=== PATIENT | male | born 1985 | race Caucasian/White ===

== ENCOUNTER → 2019-07-16 10:07 | Outpatient (BNVA) | payer MEDICAID, SELFPAY | PROVIDERS: Family Provider Family Medicine; PCP Family Medicine; Visit Provider Nurse Practitioner Family | DX: E66.01 Morbid (severe) obesity due to excess calories (principal) | CPT/HCPCS: 80048 ==

== ENCOUNTER → 2020-07-06 15:08 | Outpatient (BNVA) | payer MEDICAID, SELFPAY | PROVIDERS: Family Provider Family Medicine; PCP Family Medicine; Visit Provider Nurse Practitioner Family | DX: J06.9 Acute upper respiratory infection, unspecified (principal) | CPT/HCPCS: 87635 ==

== ENCOUNTER 2021-09-03 18:41 | Emergency (ER) | payer MEDICAID, SELFPAY ==
[2021-09-03 18:50] VITALS: BP 112/75; PULSE 73; RESP 16; TEMP 36.2; BMI 39.7
[2021-09-03 19:26] LABS: Add Urine Microscopic? NO; Charge for UA Resulting for Rev
--- NOTE | 2021-09-03 19:31 | ED_ITS ---
HPI - Back Pain/Injury General: Chief Complaint: Back Pain/Injury Stated Complaint: Kidney Stones Time Seen by Provider: 09/03/21 19:04 History of Present Illness: Patient is a 36-year-old male comes to the ED with lumbar pain. Symptoms have been going on now for approximately 1 week. Patient says symptoms started after he was sitting in the car where the seat that was tilted causing him to lean to 1 side of his body. He was sent in the car's for close to 4 hours. After that he said he started feeling this lower back pain is continued to get worse. Pain is on the left side and it radiates down into his left thigh. Pain gets worse with any movement. Denies any bladder or bowel incontinence, pelvic anesthesia or weakness to lower extremities. Denies any other injury or trauma to back. Associated symptoms: Deny abdominal pain, chills, dysuria, fatigue, fever(s), hematuria, nausea or vomiting Review of Systems Const: Denies: fever(s), chills or fatigue Eyes: Denies: change in vision or eye discomfort ENMT: Denies: throat pain, odynophagia, nasal discharge or nasal congestion Card: Denies: chest pain, palpitations, edema, swelling of feet/ankles, dyspnea on exertion or orthopnea Resp: Denies: dyspnea, productive cough or non-productive cough GI: Denies: abdominal pain, nausea, vomiting, diarrhea, constipation or hematochezia : Denies: flank pain, difficulty urinating, dysuria or hematuria Musc: Reports: back pain; Denies: neck pain or extremity swelling Skin/Breast: Denies: rash or new lesions Neuro: Denies: headache(s), numbness in extremities or weakness in extremities PFS ED PFSH: Medical History No pertinent family history Surgical History No pertinent past surgical history Physical Exam Const: COMMON NORMALS: no acute distress, patient oriented x3 and alert GENERAL APPEARANCE: cooperative and comfortable HENMT: COMMON NORMALS: normocephalic HEAD & SCALP: normocephalic MOUTH: Normal oral and palatal mucosa present THROAT: posterior oropharynx normal and uvula midline Neck/C-Spine: COMMON NORMALS: supple GENERAL: Yes normal visual inspection Resp: COMMON NORMALS: normal respiratory effort, No retractions, No use of ac cessory muscles and clear to auscultation bilaterally AUSCULTATION: clear to auscultation bilaterally Cardio: COMMON NORMALS: regular rate, regular rhythm, S1 normal heart sound present, S2 normal heart sound present, No gallops present (Cardio), No clicks present (Cardio), No murmurs present (Cardio) and Peripheral pulses 2+ throughout RATE: regular rate RHYTHM: regular rhythm HEART SOUNDS: S1 normal heart sound present and S2 normal heart sound present PERIPHERAL PULSES: Peripheral pulses 2+ throughout GI: COMMON NORMALS: Normal to inspection, nondistended, normoactive bowel sounds present, Soft to palpation, non-tender and no masses PALPATION: Yes Soft to palpation : COMMON NORMALS: Yes no CVA tenderness BLADDER/KIDNEY EXAM: Yes no CVA tenderness Back/Pelvis: COMMON NORMALS: no CVA tenderness LUMBAR SPINE/LOWER BACK: Yes pain with ROM, No lumbar spinal tenderness, Yes paraspinal muscle tenderness Lumbar paraspinal muscle tenderness: left and Yes straight leg raise positive left Extremity: COMMON NORMALS: normal to inspection Neuro: COMMON NORMALS: patient oriented x3 and moves all extremities SENSORIUM/ORIENTATION: Yes alert Skin: GENERAL SKIN EXAM: dry skin Course Vital Signs: Vital signs: Vital Signs Temperature 97.2 F L 09/03/21 18:50 Pulse Rate 61 09/03/21 21:12 Respiratory Rate 16 09/03/21 21:12 Blood Pressure 119/83 09/03/21 21:12 Pulse Oximetry 98 09/03/21 21:12 MDM - Back Pain/Injury Medical Decision Making Patient is a 36-year-old male comes to the ED with left lower back pain. Pain radiates down into left thigh. Denies any cauda equina symptoms. CBC and CMP were unremarkable. UA showed no blood ruling out any concerns for any kidney stone. Vitals are stable. Patient has some left lumbar paraspinal muscle tenderness. No lumbar spinal tenderness. Patient was given dose of pain meds, steroid and muscle relaxer here in the ED. Symptoms did improve. Patient diagnosed with lumbar radiculopathy and was discharged home with a prescription for a muscle relaxer, steroid and pain med. He was told to follow-up with his PCP in 7 to 10 days for reevaluation. Return to ED precautions given. Patient understood and agreed with plan. Labs I reviewed the patient's lab results. : 09/03/21 19:39 09/03/21 19:39 Laboratory Results WBC 9.4 10^3/uL (4.0-10.0) 09/03/21 19:39 RBC 4.80 10^6/uL (4.1-5.3) 09/03/21 19:39 Hgb 15.6 g/dL (11.7-16.6) 09/03/21 19:39 Hct 47.3 % (42.0-52.0) 09/03/21 19:39 MCV 98.5 fl (80-94) H 09/03/21 19:39 MCH 32.5 pg (28.0-34.0) 09/03/21 19: MCHC 33.0 g/dL (30.0-36.0) 09/03/21 19:39 RDW 12.6 % (12.1-15.1) 09/03/21 19:39 Plt Count 235 10^3/cmm (130-400) 09/03/21 19:39 MPV 10.3 fL (7.4-10.4) 09/03/21 19:39 Neut % (Auto) 38.9 % 09/03/21 19:39 Lymph % (Auto) 52.2 % 09/03/21 19:39 [place] % (Auto) 7.0 % 09/03/21 19:39 Eos % (Auto) 1.2 % 09/03/21 19:39 Baso % (Auto) 0.6 % 09/03/21 19:39 Neut # (Auto) 3.66 10^3/uL (1.8-7.7) 09/03/21 19:39 Lymph # (Auto) 4.9 10^3/uL (0.8-4.8) H 09/03/21 19:39 [place] # (Auto) 0.7 10^3/uL (0.2-0.9) 09/03/21 19:39 Eos # (Auto) 0.1 10^3/uL (0.0-0.8) 09/03/21 19:39 Baso # (Auto) 0.1 10^3/uL (0.0-0.1) 09/03/21 19:39 Nucleated RBC % (auto) 0 % 09/03/21 19:39 Nucleated RBCs # 0.0 /100WBC 09/03/21 19:39 Sodium 142 mmol/L (136-145) 09/03/21 19:39 Potassium 3.8 mmol/L (3.5-5.1) 09/03/21 19:39 Chloride 105 mmol/L (98-107) 09/03/21 19:39 Carbon Dioxide 24 mmol/L (22-29) 09/03/21 19:39 Anion Gap 16.8 (5-19) 09/03/21 19:39 BUN 14 mg/dL (6-20) 09/03/21 19:39 Creatinine 1.3 mg/dL (0.7-1.2) H 09/03/21 19:39 GFR Calculation 61.8 mL/min (90-130) L 09/03/21 19:39 Glucose 85 mg/dL (65-115) 09/03/21 19:39 Calculated Osmolality 294 mOsm/kg (285-295) 09/03/21 19:39 Calcium 9.5 mg/dL (8.5-10.5) 09/03/21 19:39 Total Bilirubin 0.3 mg/dL (0.15-1.2) 09/03/21 19:39 AST 23 U/L (0-40) 09/03/21 19:39 ALT 26 U/L (0-41) 09/03/21 19:39 Alkaline Phosphatase 56 IU/L (40-130) 09/03/21 19:39 Total Protein 7.7 g/dL (6.6-8.7) 09/03/21 19:39 Albumin 4.6 g/dL (3.5-5.2) 09/03/21 19:39 Globulin 3.1 g/dL (1.3-4.6) 09/03/21 19:39 Urine Color Straw (Yellow) 09/03/21 19:01 Urine Appearance Clear (CLEAR) 09/03/21 19:01 Urine pH 6.5 (5-7) 09/03/21 19:01 Ur Specific [place] 1.005 (1.005-1.030) 09/03/21 19:01 Urine Protein Neg (Negative) 09/03/21 19:01 Urine Glucose (UA) Norm (Normal) 09/03/21 19:01 Urine Ketones Negative (Negative) 09/03/21 19:01 Urine Blood Neg (Negative) 09/03/21 19:01 Urine Nitrate Negative (Negative) 09/03/21 19:01 Urine Bilirubin Neg (Negative) 09/03/21 19:01 Urine Urobilinogen Norm mg/dL (Negative) 09/03/21 19:01 Ur Leukocyte Esterase Negative (Negative) 09/03/21 19:01 Discharge Plan Discharge Patient Disposition: Home Clinical Impression: Lumbar radiculopathy Condition: Stable Prescriptions: New cyclobenzaprine 10 mg tablet 10 mg PO BID PRN (Reason: muscle spasm) Qty: 20 0RF prednisone 20 mg tablet 20 mg PO BID 7 Days Qty: 14 0RF No Action omeprazole 20 mg capsule,delayed release(DR/EC) 20 mg PO ONCE Qty: 30 0RF dextromethorphan-guaifenesin [Adult Tussin Cough Congest DM] 10-100 mg/5 mL liquid 10 ml PO Q4H PRN (Reason: cough) Qty: 500 0RF Discharge Orders: Discharge ED (Routine); Ordered 09/03/21 Ordered By: Hernan Combs Referrals: Verena Bradford MD [Primary Care Provider] - Discharge Diet: Regular Discharge Activity: Increase activity as tolerated Patient Instructions: Lumbar Radiculopathy (ED), Opioid Safety Activity Restrictions/Additional Instructions: Follow-up with medical provider as directed in 5 to 7 days for reevaluation. Take medications as prescribed. Cyclobenzaprine is a muscle relaxer and can cause some drowsiness so take at night before going to bed. Rest, limit lifting in apply cold pack or heat on lower back to help with symptoms. Stretch lower back daily. Return to the ER or your medical provider if condition worsens. Please read and understand discharge instructions. Thank you for choosing [facility] for your healthcare needs today. Please realize this is an emergency room and that we are providing you with a medical screening exam and this may not be complete and all inclusive of all the testing and or work up that you may need to determine your ailment or severity of your illness. It is very important that you follow up as instructed or that you return to the Emergency Department should you have concerns or if your condition changes or worsens in any way. Coding Level of Care Code ED [employer] for [employer]g Fwd Exam Comprehensive
[2021-09-03 19:36] VITALS: RESP 16
[2021-09-03] MEDS: morphine 4 mg/mL SDV 1 mL IM (19:36)
[2021-09-03] MEDS: orphenadrine 30 mg/mL Inj 2 mL 60 MG IM (19:36)
[2021-09-03 19:37] LABS: Bilirubin Urine Neg (Negative); Blood Urine Neg (Negative); Glucose Urine UA Norm (Normal); Ketones Urine Negative (Negative); Leukocyte Esterase Urine Negative (Negative); Nitrate Urine Negative (Negative); Protein Urine Neg (Negative); Specific Gravity, Urine 1.005 (1.005-1.030); Urine Appearance Clear (CLEAR); Urine Color Straw (Yellow); Urobilinogen Urine Norm (Negative); pH Urine 6.5 (5-7)
[2021-09-03 20:09] LABS: Alanine Aminotransferase 26 U/L (0-41); Albumin Level 4.6 g/dL (3.5-5.2); Alkaline Phosphatase 56 IU/L (40-130); Anion Gap 16.8 (5-19); Aspartate Amino Transferase 23 U/L (0-40); Blood Urea Nitrogen 14 mg/dL (6-20); Calcium 9.5 mg/dL (8.5-10.5); Carbon Dioxide 24 mmol/L (22-29); Chloride 105 mmol/L (98-107); Globulin 3.1 g/dL (1.3-4.6); Glomerular Filtration Rate 61.8 mL/min (90-130); Glucose 85 mg/dL (65-115); Osmolality Calculated 294 mOsm/kg (285-295); Potassium 3.8 mmol/L (3.5-5.1); Sodium 142 mmol/L (136-145); Total Bilirubin 0.3 mg/dL (0.15-1.2); Total Protein 7.7 g/dL (6.6-8.7)
[2021-09-03 20:10] LABS: Basophils # 0.1 10^3/uL (0.0-0.1); Basophils % 0.6 %; Eosinophils # 0.1 10^3/uL (0.0-0.8); Eosinophils % 1.2 %; Hematocrit 47.3 % (42.0-52.0); Hemoglobin 15.6 g/dL (11.7-16.6); Lymphocytes # 4.9 10^3/uL (0.8-4.8); Lymphocytes % 52.2 %; Mean Corpuscular Hemoglobin 32.5 pg (28.0-34.0); Mean Corpuscular Volume 98.5 fl (80-94); Mean Platelet Volume 10.3 fL (7.4-10.4); Monocytes # 0.7 10^3/uL (0.2-0.9); Neutrophils # 3.66 10^3/uL (1.8-7.7); Neutrophils % 38.9 %; Nucleated Red Blood Cells % 0 %; Platelet Count 235 10^3/cmm (130-400); Red Cell Distribution Width 12.6 % (12.1-15.1); White Blood Count 9.4 10^3/uL (4.0-10.0)
[2021-09-03] MEDS: oxyCODONE 5 mg IR Tab/Cap 10 MG PO (21:09)
[2021-09-03 21:12] VITALS: BP 119/83; PULSE 61; RESP 16; O2SAT 98
== END 2021-09-03 21:13 | disposition home or self-care (01) ==
PROVIDERS: Emergency Provider Physician Assistant; PCP Family Medicine
DX: M54.16 Radiculopathy, lumbar region (principal)
CPT/HCPCS: 36415; 80053; 81003; 85025; 96372; 99283; J2270; J2360; J2930

== ENCOUNTER → 2022-02-22 12:28 | Outpatient (BNVA) | payer MEDICAID, SELFPAY | PROVIDERS: PCP Family Medicine; Visit Provider Emergency Medicine | DX: Z20.822 Contact with and (suspected) exposure to COVID-19 (principal); R11.0 Nausea; U07.1 COVID-19 | CPT/HCPCS: 87426 ==

== ENCOUNTER → 2023-03-28 15:18 | Outpatient (BNVA) | payer MEDICAID, SELFPAY | PROVIDERS: PCP Family Medicine; Visit Provider Nurse Practitioner Family | DX: M79.671 Pain in right foot (principal); M79.89 Other specified soft tissue disorders | CPT/HCPCS: 73630 ==